=== PATIENT | female | born 1960 | race Caucasian/White ===

== ENCOUNTER 2022-06-16 09:16 | Outpatient (CLI) | payer MEDICARE, SELFPAY ==
--- NOTE | 2022-06-16 09:29 | ECG_ITS ---
Measurements Intervals [place] Rate: 64 P: 24 NC: 174 QRS: -10 QRSD: 80 T: 6 QT: 394 QTc: 407 Interpretive Statements SINUS RHYTHM NORMAL ECG NO PREVIOUS ECG AVAILABLE FOR COMPARISON Electronically Signed On 06-16-2022 13:11:39 TEXTILE ARTIST by Naveen Solano D.O.
== END 2022-06-16 09:17 | disposition home or self-care (01) ==
LOC: ANHSURGERY 09:23
PROVIDERS: Visit Provider Orthopaedic Surgery
DX: I10 Essential (primary) hypertension (principal); Z01.818 Encounter for other preprocedural examination
CPT/HCPCS: 93005

== ENCOUNTER 2022-06-22 00:32 | Day surgery (SDC) | payer MEDICARE, SELFPAY ==
[2022-06-11 14:53] VITALS: BMI 35.8
--- NOTE | 2022-06-11 14:58 | PC.NURSE ---
Report to the Outpatient Waiting Room, entrance under the green pavilion located off [facility], at time 0730 on date 06/22/22. Planned Procedure Time: 0930. Time changes happen often and if your time is changed the preop area will call you the afternoon before. - You and your visitor will be asked to self-screen and do not enter if you have any COVID symptoms. - Only one visitor is requested with a max of two and NO children visitors are allowed at this time. - The patient visitor may be requested to leave or wait in car when not with patient due to distancing restrictions. - A mask is optional within the hospital at this time. Patients may have clear liquids (water, carbonated beverages, clear teas, apple juice) until 3 hours prior to surgery with a maximum of 20 ounces. - No food from midnight until time of surgery Take the following medications with a SIP of water the morning of surgery: METOPROLOL, GABAPENTIN DO NOT STOP ANY OF YOUR OTHER PRESCRIPTION MEDICATIONS PRIOR TO SURGERY EXCEPT THE FOLLOWING Medications to discontinue per physician: VITAMINS/SUPPLEMENTS Date to take last dose: 06/18/22 Please no make-up, nail spanish, hairspray, perfume, deodorant, or body powder the day of surgery. No jewelry (including any body piercings) or valuables the day of surgery, leave them at home. Please take a shower or bath the night before, or the morning of, surgery with an antibacterial soap. Wear comfortable, loose fitting clothing. - Jewelry must be removed prior to entering the operating room. Rings and piercings that are not removed may be cut off. - The hospital will not accept responsibility for valuables. - Please leave all valuables, including medications, at home the day of surgery. If you are going home after surgery, a licensed pedicab driver must drive you home. - NO public transportation without another adult if you receive anesthesia. - We recommend that an adult stay with you for 24 hours following discharge. - We also recommend that you do not drive, make important decision, drink alcoholic beverages, or take any drugs that were not prescribed by your health care provider for at least 24 hours after your discharge time. Follow any additional instructions given to you from your surgeon. If you or anyone in your household have experienced Covid symptoms in the past week, please notify your surgeon or the nurse liaison at the phone number below for possible testing. Telephone instructions given to MARSHA DUKE and asked if any additional questions and then verbalized understanding. Patient advised to call surgeon office or pre surgery nurse liaison [phone] if any additional questions.
[2022-06-22] VITALS (10 sets, daily range): BP systolic 129–164; BP diastolic 65–93; PULSE 70–81; RESP 12–18; TEMP 36.1–36.2; O2SAT 94–100
--- NOTE | 2022-06-22 10:53 | WPDHPUPDATE1 ---
History and Physical Update Update Date/Time: 06/22/22 10:53 History and Physical has been reviewed, including an updated exam of the patient. There are NO changes in the patient's condition. Risks, benefits, and alternatives have been discussed and questions answered. Patient agrees to proceed with procedure.
--- NOTE | 2022-06-22 10:59 | WPDANESEPPF ---
Anes - Initial Pre Proc Eval Procedure: Operation Date: 06/22/22 12:30 Proposed Procedures p Left Knee Arthroscopy with Peripatellar Debridement - Rene Love MD Date/Time: 06/22/22 10:59 Surgeon: Rene Love MD Pre Op Diagnosis: Left Ant Knee Pain Patient Data Age: 61 Gender: F Height: 1.6 m Weight: 91.65 kg Allergies Allergy/AdvReac Type Severity Reaction Status Date / Time morphine AdvReac Intermediate Nausea and Verified 06/22/22 10:43 Vomiting Home Medications Medication Instructions Recorded Confirmed Type gabapentin 400 mg capsule 400 mg PO TID 05/21/22 06/16/22 History metoprolol succinate 50 mg 50 mg PO DAILY 05/21/22 06/16/22 History tablet,extended release 24 hr potassium chloride 20 mEq/15 mL 20 meq PO BID 05/21/22 06/16/22 History oral liquid triamterene 37.5 1 cap PO DAILY 05/21/22 06/16/22 History mg-hydrochlorothiazide 25 mg capsule cholecalciferol (vitamin D3) 50 50 mcg PO DAILY 06/11/22 06/16/22 History mcg (2,000 unit) tablet (Vitamin D3) conjugated estrogens 0.625 mg 0.625 mg PO 2XW 06/11/22 06/16/22 History tablet (Premarin) diphenhydramine 25 1 tablet PO HS PRN Pain 06/11/22 06/16/22 History mg-acetaminophen 500 mg tablet (Tylenol PM Extra Strength) Patient hx anesthesia problems: post op nausea/vomiting Family hx anesthesia problems: post op nausea/vomiting Results Review: All pre-operative results and documents have been reviewed as part of the pre-operative evaluation. [facility] Past Medical History Medical History Arthritis Hypertension Surgical History Surgical History History of appendectomy History of back surgery 2011- Dr Worthy History of bilateral knee replacement left 2005 right 2014 History of hip surgery 2017- right hip trochanteric debridement History of hysterectomy History of knee surgery 2005- left knee cartilage replacement- Dr Campbell Family History Family History Mother Cancer Heart disease Father Cancer Sibling Cancer Grandparent Heart disease Social History Social History Smoking status: Never smoker Alcohol intake: never Substance use: never Substance use type: does not use Living arrangements: with family Occupation/Education: retired Spiritual care concerns: No Anes - Eval Final PreProcedure Day of Procedure 06/22/22 10:59 Patient weight: obese Heart: regular rate and rhythm Lungs: clear to auscultation Airway: Mallampati scale class II Neurological: alert and oriented Last oral intake: >/= 8 hours ASA classification: III Emergent: no Anesthetic plan: proceed Anesthesia type and monitoring: general LMA and standard monitoring Results Review: All pre-operative results and documents have been reviewed as part of the pre-operative evaluation. Informed Consent: The patient's anesthetic plan and its attendant risks and benefits were discussed with the patient/family/POA. Questions were solicited and answers provided to the satisfaction of the patient/family/POA.
[2022-06-22] MEDS: ACETAMINOPHEN 500 MG TABLET 1000 MG PO (11:00)
[2022-06-22] MEDS: LACTATED RINGERS 1,000 ML 30 ML IV CONT ×2 (11:04→12:14)
[2022-06-22] MEDS: KETOROLAC 15 MG/ML VIAL (*BKC) IV PUSH (11:05)
[2022-06-22] MEDS: SCOPOLAMINE 1.5 MG PATCH TRANSDERM (11:10)
[2022-06-22] MEDS: ceFAZolin 2 GM/D5W 50 ML 2 GM/50 ML BAG IVPB (11:11)
--- NOTE | 2022-06-22 12:16 | W.PM.PROC2 ---
Procedure Note - Detailed Date of Procedure 06/22/22 Pre-op Diagnosis Left Ant Knee Pain Post-op Diagnosis Same Procedure Performed left knee arthroscopy with prepatellar debridement Surgeon Rene Love MD Anesthesia General Description of Procedure The patient was identified and proper site identified and she was taken to the operating room, transferred to the OR table placing her supine taking care to pad the torso and extremities. After general anesthetic induction and intubation, a nonsterile tourniquet was placed high on the left thigh. The left lower extremity was positioned, prepped and draped in usual sterile fashion. 10 cc of 1% lidocaine was injected into the subcutaneous tissue in the area of the portals at start of the procedure, and an additional 10 at the end. The portals were established and the arthroscopy was carried out. There was quite a bit of scar tissue hanging likely curtain about the margins of the patella. The superior lateral aspect of this actually had some focal synovitis associated with it. There was some chronic synovial proliferation in the pouch and gutters as well as some infrapatellar scar tissue. Extremities exsanguinated the tourniquet was inflated to 300 millimeters mercury remaining up for about 14 minutes. The shaver was used to debride the peripatellar scar tissue and ArthroCare Wand used for hemostasis. The knee was flushed with a copious amount of arthroscopic fluid and equipment was removed. Portals were closed with three O nylon suture and a sterile dressing was applied. She tolerated the procedure well, was awakened, extubated and taken to recovery area in stable condition. There were no known intraoperative complications. Estimated blood loss was negligible; she received perioperative antibiotics. Estimated Blood Loss 10 Tourniquet Time 14 Drains No Packing No Pathology None sent Complications No immediate complications Condition Stable Disposition PACU [facility] Billing Surgery - Charge Forward: Surgery Billing ([id number])
[2022-06-22] MEDS: LIDOCAINE HCL 1% LOCAL INJ 10 ML VIAL 20 ML INFILTRATE (12:21)
[2022-06-22] MEDS: fentaNYL CITRATE INJ (*CRX) 100 MCG/2 ML VIAL 25 MCG IV PUSH ×2 (12:47→12:53)
[2022-06-22] MEDS: oxyCODONE HCL (*CRX) 5 MG TAB IR PO (13:55)
== END 2022-06-22 14:53 | disposition home or self-care (01) ==
PROVIDERS: Visit Provider Orthopaedic Surgery
PROC: (CPT 29870; principal; 2022-06-22 12:30)
DX: M25.562 Pain in left knee (principal); T84.84XA Pain due to internal orthopedic prosthetic devices, implants and grafts, initial encounter; Z96.653 Presence of artificial knee joint, bilateral; I10 Essential (primary) hypertension; M70.52 Other bursitis of knee, left knee; M19.90 Unspecified osteoarthritis, unspecified site
CPT/HCPCS: 29877; 93005; A9270; J0690; J1100; J1885; J2250; J2405; J2704; J3010; J7120